=== PATIENT | female | born 1960 | race Caucasian/White ===

== ENCOUNTER 2016-12-31 20:24 | Emergency (ER) | payer SELFPAY ==
[~2016-12-31 20:24] MED LIST: NEXIUM
== END 2016-12-31 22:34 | disposition left against medical advice (07) ==
LOC: E/R 20:24
DX: Z53.21 Procedure and treatment not carried out due to patient leaving prior to being seen by health care provider (principal)

== ENCOUNTER 2018-04-06 22:18 | Emergency (ER) | END 2018-04-07 02:30 | disposition home or self-care (01) ==